=== PATIENT | male | born 1985 | race Asian ===

== ENCOUNTER 2025-03-17 07:17 | Emergency (ER) | payer MEDICAID, OTHER ==
[2025-03-17 07:42] VITALS: BP 115/71; PULSE 82
== END 2025-03-17 08:05 | disposition home or self-care (01) ==
LOC: DL.ED 07:17
DX: M43.6 Torticollis (principal); L73.9 Follicular disorder, unspecified; E78.00 Pure hypercholesterolemia, unspecified; Z88.0 Allergy status to penicillin; Z79.899 Other long term (current) drug therapy
CPT/HCPCS: 99283